=== PATIENT | male | born 1945 | race Caucasian/White ===

== ENCOUNTER 2018-03-11 10:38 | Inpatient (IN) ==
[2018-03-12 04:10] LABS: Basophils % 0.3 % (0.0-0.8); Eosinophils # 0.2 10*3/uL (0.0-0.87); Eosinophils % 5.2 % (0.00-10.9); Hematocrit 28.5 VOL% (42.0-52.0); Hemoglobin 9.9 GM/DL (14.0-18.0); Immature Granulocytes % 0.8 %; Immature Granulocytes Absolute 0.03 #; Lymphocytes # 0.2 10*3/uL (1.4-4.0); Lymphocytes % 4.9 % (21.2-54.2); Mean Corpuscular HGB Conc 34.7 GM/DL (32-36); Mean Corpuscular Hemoglobin 32 PG (27-34); Mean Corpuscular Volume 91.6 FL (87-102); Mean Platelet Volume 10.2 FL (9.6-12.0); Monocytes # 0.9 10*3/uL (0.11-0.8); Monocytes % 23.2 % (1.7-12.7); Neutrophils # 2.5 10*3/uL (1.4-7.4); Neutrophils % 65.6 % (38.7-73.9); Platelet Count 101 T/CUMM (130-400); Red Blood Count 3.11 MC/CUMM (3.8-5.5); Red Cell Distribution Width 14.3 % (9.3-17.3); White Blood Count 3.8 T/CUMM (4-12)
[2018-03-12 04:36] LABS: Band Neutrophils 3 % (0-10); Eosinophils 2 % (0-10); Hypochromasia Slight; Lymphocytes 11 % (20-55); Segmented Neutrophils 67 % (50-85); Total Cells Counted 100
[2018-03-12 04:37] LABS: Platelet Estimate Decreased
[2018-03-12 04:42] LABS: Albumin 2.7 G/DL (3.4-5.0); Bilirubin,Total 0.8 MG/DL (0.2-1.0); Potassium 4.2 MMOL/L (3.5-5.1)
[2018-03-14 04:03] LABS: Basophils % 0.4 % (0.0-0.8); Eosinophils # 0.1 10*3/uL (0.0-0.87); Eosinophils % 2.8 % (0.00-10.9); Hematocrit 27.3 VOL% (42.0-52.0); Hemoglobin 9.8 GM/DL (14.0-18.0); Immature Granulocytes % 1.4 %; Immature Granulocytes Absolute 0.07 #; Lymphocytes # 0.2 10*3/uL (1.4-4.0); Lymphocytes % 4.4 % (21.2-54.2); Mean Corpuscular HGB Conc 35.9 GM/DL (32-36); Mean Corpuscular Hemoglobin 33 PG (27-34); Mean Corpuscular Volume 90.4 FL (87-102); Mean Platelet Volume 10.8 FL (9.6-12.0); Monocytes # 0.9 10*3/uL (0.11-0.8); Monocytes % 17.5 % (1.7-12.7); NRBC # 0.04 10*3/uL; Neutrophils # 3.7 10*3/uL (1.4-7.4); Neutrophils % 73.5 % (38.7-73.9); Platelet Count 152 T/CUMM (130-400); Red Blood Count 3.02 MC/CUMM (3.8-5.5); Red Cell Distribution Width 14.8 % (9.3-17.3)
[2018-03-14 04:17] LABS: Bilirubin,Total 0.5 MG/DL (0.2-1.0); Calcium 7.3 MG/DL (8.5-10.1); Osmolality,Calculated 273.7 MOS/KG (273-304); Total Protein 4.4 G/DL (6.4-8.3)
[2018-03-14 06:51] LABS: Band Neutrophils 3 % (0-10); Eosinophils 1 % (0-10); Lymphocytes 5 % (20-55); Platelet Estimate Normal; Segmented Neutrophils 83 % (50-85); Total Cells Counted 100
[2018-03-16 05:31] LABS: Basophils % 0.5 % (0.0-0.8); Eosinophils # 0.4 10*3/uL (0.0-0.87); Hematocrit 23.8 VOL% (42.0-52.0); Hemoglobin 8.1 GM/DL (14.0-18.0); Immature Granulocytes % 2.1 %; Immature Granulocytes Absolute 0.08 #; Lymphocytes # 0.3 10*3/uL (1.4-4.0); Mean Corpuscular Hemoglobin 31 PG (27-34); Mean Corpuscular Volume 91.2 FL (87-102); Mean Platelet Volume 10.2 FL (9.6-12.0); Monocytes # 0.9 10*3/uL (0.11-0.8); Monocytes % 23.5 % (1.7-12.7); Neutrophils # 2.1 10*3/uL (1.4-7.4); Neutrophils % 55.9 % (38.7-73.9); Platelet Count 228 T/CUMM (130-400); Red Blood Count 2.61 MC/CUMM (3.8-5.5); Red Cell Distribution Width 14.6 % (9.3-17.3); White Blood Count 3.7 T/CUMM (4-12)
[2018-03-16 05:54] LABS: Calcium 7.4 MG/DL (8.5-10.1); Osmolality,Calculated 275.4 MOS/KG (273-304); Potassium 3.7 MMOL/L (3.5-5.1)
[2018-03-16 06:14] LABS: Band Neutrophils 1 % (0-10); Eosinophils 10 % (0-10); Giant Platelets Few; Hypochromasia 1+; Lymphocytes 3 % (20-55); Ovalocytes Slight; Platelet Estimate Adequate; Segmented Neutrophils 57 % (50-85); Total Cells Counted 100
[2018-03-17 05:12] LABS: Basophils % 0.7 % (0.0-0.8); Eosinophils # 0.4 10*3/uL (0.0-0.87); Eosinophils % 8.2 % (0.00-10.9); Hematocrit 23.7 VOL% (42.0-52.0); Hemoglobin 8.4 GM/DL (14.0-18.0); Immature Granulocytes Absolute 0.13 #; Lymphocytes # 0.5 10*3/uL (1.4-4.0); Lymphocytes % 11.2 % (21.2-54.2); Mean Corpuscular HGB Conc 35.4 GM/DL (32-36); Mean Corpuscular Hemoglobin 32 PG (27-34); Mean Corpuscular Volume 88.8 FL (87-102); Mean Platelet Volume 9.9 FL (9.6-12.0); Monocytes % 22.3 % (1.7-12.7); NRBC # 0.02 10*3/uL; Neutrophils # 2.4 10*3/uL (1.4-7.4); Neutrophils % 54.6 % (38.7-73.9); Platelet Count 265 T/CUMM (130-400); Red Blood Count 2.67 MC/CUMM (3.8-5.5); Red Cell Distribution Width 15.1 % (9.3-17.3); White Blood Count 4.4 T/CUMM (4-12)
[2018-03-17 05:37] LABS: Calcium 7.2 MG/DL (8.5-10.1); Osmolality,Calculated 273.4 MOS/KG (273-304); Potassium 3.2 MMOL/L (3.5-5.1)
[2018-03-17 05:52] LABS: Band Neutrophils 2 % (0-10); Eosinophils 8 % (0-10); Giant Platelets Few; Hypochromasia 1+; Lymphocytes 6 % (20-55); Nucleated Red Blood Cells 1 (0-5); Ovalocytes Slight; Platelet Estimate Adequate; Segmented Neutrophils 68 % (50-85); Total Cells Counted 100
[2018-03-18 05:38] LABS: Basophils % 0.7 % (0.0-0.8); Eosinophils # 0.6 10*3/uL (0.0-0.87); Eosinophils % 9.8 % (0.00-10.9); Hematocrit 24.5 VOL% (42.0-52.0); Hemoglobin 8.2 GM/DL (14.0-18.0); Immature Granulocytes % 2.7 %; Immature Granulocytes Absolute 0.16 #; Lymphocytes # 0.9 10*3/uL (1.4-4.0); Lymphocytes % 15.4 % (21.2-54.2); Mean Corpuscular HGB Conc 33.5 GM/DL (32-36); Mean Corpuscular Hemoglobin 31 PG (27-34); Mean Corpuscular Volume 91.1 FL (87-102); Monocytes # 1.3 10*3/uL (0.11-0.8); Monocytes % 21.8 % (1.7-12.7); Neutrophils % 49.6 % (38.7-73.9); Platelet Count 238 T/CUMM (130-400); Red Blood Count 2.69 MC/CUMM (3.8-5.5); Red Cell Distribution Width 15.2 % (9.3-17.3)
[2018-03-18 06:01] LABS: Band Neutrophils 3 % (0-10); Eosinophils 12 % (0-10); Giant Platelets Few; Hypochromasia 1+; Lymphocytes 16 % (20-55); Ovalocytes Slight; Platelet Estimate Adequate; Segmented Neutrophils 56 % (50-85); Total Cells Counted 100
[2018-03-18 06:04] LABS: Calcium 7.5 MG/DL (8.5-10.1); Osmolality,Calculated 277.3 MOS/KG (273-304); Potassium 3.6 MMOL/L (3.5-5.1)
[2018-03-18 07:37] VITALS: BP 141/67
== END 2018-03-18 10:59 | disposition home or self-care (01) | DRG 327 ==
LOC: N.4E
PROVIDERS: ADMIT Internal Medicine Hematology & Oncology; ATTEND Internal Medicine Hematology & Oncology

== ENCOUNTER 2019-02-01 12:48 | Inpatient (IN) ==
[2019-02-01 13:49] LABS: Basophils % 0.5 % (0.0-0.8); Eosinophils % 0.7 % (0.00-10.9); Hematocrit 24.3 VOL% (42.0-52.0); Hemoglobin 7.9 GM/DL (14.0-18.0); Immature Granulocytes % 0.5 %; Immature Granulocytes Absolute 0.02 #; Mean Corpuscular HGB Conc 32.5 GM/DL (32-36); Mean Corpuscular Hemoglobin 31 PG (27-34); Mean Corpuscular Volume 95.7 FL (87-102); Mean Platelet Volume 10.6 FL (9.6-12.0); Monocytes # 0.5 10*3/uL (0.11-0.8); Monocytes % 11.3 % (1.7-12.7); Neutrophils # 2.6 10*3/uL (1.4-7.4); Platelet Count 205 T/CUMM (130-400); Red Blood Count 2.54 MC/CUMM (3.8-5.5); Red Cell Distribution Width 15.1 % (9.3-17.3); White Blood Count 4.2 T/CUMM (4-12)
[2019-02-01 13:54] LABS: INR 1.3; PT Patient Result 13.6 SECS; Partial Thromboplastin Time 31.7 SECS (0-40)
[2019-02-01 14:04] LABS: Albumin 3.5 G/DL (3.4-5.0); Bilirubin,Total 0.4 MG/DL (0.2-1.0); Calcium 8.5 MG/DL (8.5-10.1); Osmolality,Calculated 277.1 MOS/KG (273-304); Potassium 4.2 MMOL/L (3.5-5.1); Total Protein 6.6 G/DL (6.4-8.3)
[2019-02-01 14:55] LABS: Apearance,Urine CLEAR (Clear); Bilirubin,Urine Negative (Negative); Blood, Urine Negative (Negative); Glucose,Urine (UA) Negative (Negative); Ketones,Urine Negative (Negative); Mucus,Urine Occasional /LPF (Occasional); Nitrite,Urine Negative (Negative); Protein,Urine Negative; RBC,Urine 2 /HPF (0-4); Squamous Epithelial Cell,Urine Occasional /HPF (0-10); Urine Color Yellow (Yellow); Urine Specific Gravity 1.041 (1.001-1.035); Urine Urobilinogen < 2.0 EU/DL (0.2-1.0); WBC,Urine <1 /HPF (0-6)
[2019-02-01] MEDS ORDERED: GLUCAGON 1 MG VIAL IM PRN (15:36)
[2019-02-01] MEDS ORDERED: DEXTROSE 50% 25 GM/50 ML VIAL IV PRN (15:36)
[2019-02-01] MEDS ORDERED: ACETAMINOPHEN 325 MG TABLET PO PRN (15:36)
[2019-02-01] MEDS ORDERED: DOCUSATE SODIUM 100 MG CAPSULE PO PRN (15:36)
[2019-02-01] MEDS ORDERED: SODIUM CHLORIDE 0.9% 1,000 ML IV PRN (16:04)
[2019-02-01 16:08] LABS: Thyroid Stimulating Hormone 3.13 uIU/ml (0.358-3.74)
[2019-02-01 16:49] LABS: % Iron Saturation 11.8 % (18-50)
[2019-02-01] MEDS: INSULIN LISPRO 100 UNIT/ML SUBCUT SCH ×2 (17:18→21:34)
[2019-02-01 17:21] LABS: Folate 21.5 NG/ML (5.4-24.0)
[2019-02-01] MEDS: RIVAROXABAN 20 MG TABLET PO SCH (18:30)
[2019-02-01] MEDS: INSULIN GLARGINE 100 UNIT/ML SUBCUT SCH (21:33)
[2019-02-01] MEDS: TEMAZEPAM 7.5 MG CAPSULE PO PRN (22:51)
[2019-02-02 02:52] LABS: Hematocrit 26.8 VOL% (42.0-52.0)
[2019-02-02 03:18] LABS: Albumin 2.9 G/DL (3.4-5.0); Bilirubin,Total 1.2 MG/DL (0.2-1.0); Calcium 8.2 MG/DL (8.5-10.1); Osmolality,Calculated 274.7 MOS/KG (273-304); Potassium 3.7 MMOL/L (3.5-5.1)
[2019-02-02 05:38] LABS: Basophils % 0.4 % (0.0-0.8); Eosinophils % 0.8 % (0.00-10.9); Hematocrit 27.7 VOL% (42.0-52.0); Hemoglobin 9.1 GM/DL (14.0-18.0); Immature Granulocytes % 0.4 %; Immature Granulocytes Absolute 0.02 #; Lymphocytes % 18.7 % (21.2-54.2); Mean Corpuscular HGB Conc 32.9 GM/DL (32-36); Mean Corpuscular Hemoglobin 31 PG (27-34); Mean Corpuscular Volume 93.6 FL (87-102); Mean Platelet Volume 10.4 FL (9.6-12.0); Monocytes # 0.8 10*3/uL (0.11-0.8); Monocytes % 14.9 % (1.7-12.7); Neutrophils # 3.4 10*3/uL (1.4-7.4); Neutrophils % 64.8 % (38.7-73.9); Platelet Count 153 T/CUMM (130-400); Red Blood Count 2.96 MC/CUMM (3.8-5.5); Red Cell Distribution Width 15.6 % (9.3-17.3); White Blood Count 5.3 T/CUMM (4-12)
[2019-02-02] MEDS: PANTOPRAZOLE 40 MG TABLET PO SCH (08:38)
[2019-02-02] MEDS: INSULIN LISPRO 100 UNIT/ML SUBCUT SCH ×4 (09:17→21:20)
[2019-02-02] MEDS: glipiZIDE 10 MG TABLET PO SCH (09:17)
[2019-02-02] MEDS: metFORMIN 500 MG TABLET PO SCH (09:17)
[2019-02-02] MEDS: INSULIN GLARGINE 100 UNIT/ML SUBCUT SCH ×2 (09:17→21:19)
[2019-02-02] MEDS: LISINOPRIL/HCTZ 20-12.5 MG TABLET PO SCH (09:30)
[2019-02-02] MEDS: RIVAROXABAN 20 MG TABLET PO SCH (16:20)
[2019-02-02] MEDS: TEMAZEPAM 7.5 MG CAPSULE PO PRN (21:22)
[2019-02-03 04:28] LABS: Basophils % 0.2 % (0.0-0.8); Eosinophils # 0.1 10*3/uL (0.0-0.87); Eosinophils % 3.2 % (0.00-10.9); Hematocrit 28.6 VOL% (42.0-52.0); Hemoglobin 9.3 GM/DL (14.0-18.0); Immature Granulocytes % 0.2 %; Immature Granulocytes Absolute 0.01 #; Lymphocytes # 0.7 10*3/uL (1.4-4.0); Lymphocytes % 16.8 % (21.2-54.2); Mean Corpuscular HGB Conc 32.5 GM/DL (32-36); Mean Corpuscular Hemoglobin 30 PG (27-34); Mean Corpuscular Volume 93.5 FL (87-102); Mean Platelet Volume 10.6 FL (9.6-12.0); Monocytes # 0.7 10*3/uL (0.11-0.8); Monocytes % 17.3 % (1.7-12.7); Neutrophils # 2.5 10*3/uL (1.4-7.4); Neutrophils % 62.3 % (38.7-73.9); Platelet Count 157 T/CUMM (130-400); Red Blood Count 3.06 MC/CUMM (3.8-5.5); Red Cell Distribution Width 15.9 % (9.3-17.3); White Blood Count 4.1 T/CUMM (4-12)
[2019-02-03 05:03] LABS: Albumin 3.2 G/DL (3.4-5.0); Bilirubin,Total 0.9 MG/DL (0.2-1.0); Calcium 8.2 MG/DL (8.5-10.1); Osmolality,Calculated 274.7 MOS/KG (273-304); Potassium 3.9 MMOL/L (3.5-5.1); Total Protein 6.1 G/DL (6.4-8.3)
[2019-02-03 05:07] LABS: Eosinophils 4 % (0-10); Hypochromasia 1+; Lymphocytes 19 % (20-55); Platelet Estimate Adequate; Segmented Neutrophils 57 % (50-85); Total Cells Counted 100
[2019-02-03] MEDS: INSULIN LISPRO 100 UNIT/ML SUBCUT SCH ×4 (07:34→20:38)
[2019-02-03] MEDS: glipiZIDE 10 MG TABLET PO SCH (09:36)
[2019-02-03] MEDS: metFORMIN 500 MG TABLET PO SCH (09:36)
[2019-02-03] MEDS: PANTOPRAZOLE 40 MG TABLET PO SCH (09:37)
[2019-02-03] MEDS: LISINOPRIL/HCTZ 20-12.5 MG TABLET PO SCH (09:37)
[2019-02-03] MEDS: INSULIN GLARGINE 100 UNIT/ML SUBCUT SCH ×2 (09:38→20:38)
[2019-02-03] MEDS ORDERED: SODIUM CHLORIDE 0.9% 1,000 ML IV ONE (11:40)
[2019-02-03] MEDS: RIVAROXABAN 20 MG TABLET PO SCH (17:14)
[2019-02-03] MEDS: ONDANSETRON 4 MG/2 ML VIAL IV PRN (19:11)
[2019-02-03] MEDS: TEMAZEPAM 7.5 MG CAPSULE PO PRN (20:38)
[2019-02-04 05:08] LABS: Basophils % 0.4 % (0.0-0.8); Eosinophils # 0.2 10*3/uL (0.0-0.87); Eosinophils % 3.4 % (0.00-10.9); Hematocrit 30.6 VOL% (42.0-52.0); Hemoglobin 10.1 GM/DL (14.0-18.0); Immature Granulocytes % 0.4 %; Immature Granulocytes Absolute 0.02 #; Lymphocytes % 22.5 % (21.2-54.2); Mean Corpuscular Hemoglobin 31 PG (27-34); Mean Corpuscular Volume 93.6 FL (87-102); Mean Platelet Volume 10.5 FL (9.6-12.0); Monocytes # 0.7 10*3/uL (0.11-0.8); Monocytes % 14.6 % (1.7-12.7); Neutrophils # 2.6 10*3/uL (1.4-7.4); Neutrophils % 58.7 % (38.7-73.9); Platelet Count 135 T/CUMM (130-400); Red Blood Count 3.27 MC/CUMM (3.8-5.5); Red Cell Distribution Width 15.5 % (9.3-17.3); White Blood Count 4.5 T/CUMM (4-12)
[2019-02-04 05:32] LABS: Albumin 3.2 G/DL (3.4-5.0); Bilirubin,Total 0.8 MG/DL (0.2-1.0); Calcium 8.3 MG/DL (8.5-10.1); Osmolality,Calculated 278.7 MOS/KG (273-304); Potassium 4.1 MMOL/L (3.5-5.1); Total Protein 6.3 G/DL (6.4-8.3)
[2019-02-04] MEDS: INSULIN LISPRO 100 UNIT/ML SUBCUT SCH ×4 (07:16→20:41)
[2019-02-04] MEDS: INSULIN GLARGINE 100 UNIT/ML SUBCUT SCH ×2 (08:51→20:40)
[2019-02-04] MEDS: glipiZIDE 10 MG TABLET PO SCH (08:52)
[2019-02-04] MEDS: PANTOPRAZOLE 40 MG TABLET PO SCH (08:52)
[2019-02-04] MEDS: metFORMIN 500 MG TABLET PO SCH (08:52)
[2019-02-04] MEDS: RIVAROXABAN 20 MG TABLET PO SCH (17:55)
[2019-02-04] MEDS: TEMAZEPAM 7.5 MG CAPSULE PO PRN (20:40)
[2019-02-05] MEDS: INSULIN LISPRO 100 UNIT/ML SUBCUT SCH ×2 (07:48→12:31)
[2019-02-05] MEDS: PANTOPRAZOLE 40 MG TABLET PO SCH (08:37)
[2019-02-05] MEDS: INSULIN GLARGINE 100 UNIT/ML SUBCUT SCH (08:38)
[2019-02-05] MEDS: ONDANSETRON 4 MG/2 ML VIAL IV PRN (08:38)
[2019-02-05] MEDS: glipiZIDE 10 MG TABLET PO SCH (08:38)
[2019-02-05 11:42] VITALS: BP 142/68
== END 2019-02-05 12:34 | disposition home or self-care (01) | DRG 204 ==
LOC: N.ED 12:48 → SUATTDRO 15:36 → N.EDINP 16:43 → N.2E 16:58
PROVIDERS: ADMIT Internal Medicine; ATTEND Internal Medicine

== ENCOUNTER 2019-09-13 17:39 | Inpatient (IN) ==
[2019-09-13 22:24] LABS: Basophils % 0.7 % (0.0-0.8); Eosinophils # 0.1 10*3/uL (0.0-0.87); Eosinophils % 2.4 % (0.00-10.9); Hemoglobin 11.1 GM/DL (14.0-18.0); Immature Granulocytes % 0.2 %; Immature Granulocytes Absolute 0.01 #; Lymphocytes # 1.7 10*3/uL (1.4-4.0); Lymphocytes % 41.1 % (21.2-54.2); Mean Corpuscular HGB Conc 34.7 GM/DL (32-36); Mean Corpuscular Volume 94.7 FL (87-102); Mean Platelet Volume 12.1 FL (9.6-12.0); Monocytes % 12.6 % (1.7-12.7); Platelet Count 115 T/CUMM (130-400); Red Blood Count 3.38 MC/CUMM (3.8-5.5); Red Cell Distribution Width 15.4 % (9.3-17.3); White Blood Count 4.2 T/CUMM (4-12)
[2019-09-13] MEDS ORDERED: oxyCODONE/ACETAMINOPHEN 5-325 MG TABLET PO STA (22:27)
[2019-09-13 22:56] LABS: Albumin 3.3 G/DL (3.4-5.0); Bilirubin,Total 0.7 MG/DL (0.2-1.0); Calcium 9.5 MG/DL (8.5-10.1); Osmolality,Calculated 276.8 MOS/KG (273-304); Total Protein 6.5 G/DL (6.4-8.3)
[2019-09-14] MEDS ORDERED: SODIUM CHLORIDE 0.9% 1,000 ML IV STA (00:15)
[2019-09-14] MEDS ORDERED: NICOTINE 21 MG/24 HR PATCH TRANSDERM PRN (00:31)
[2019-09-14] MEDS ORDERED: MORPHINE 4 MG/1 ML VIAL IV PRN (00:31)
[2019-09-14] MEDS ORDERED: ONDANSETRON 4 MG/2 ML VIAL IV PRN (00:31)
[2019-09-14] MEDS: PANTOPRAZOLE 40 MG VIAL IV SCH ×3 (01:32→20:36)
[2019-09-14] MEDS: SODIUM CHLORIDE 0.9% 1,000 ML IV SCH ×3 (02:13→18:32)
[2019-09-14 02:51] LABS: Basophils % 0.8 % (0.0-0.8); Eosinophils # 0.1 10*3/uL (0.0-0.87); Eosinophils % 1.6 % (0.00-10.9); Hematocrit 31.6 VOL% (42.0-52.0); Hemoglobin 10.3 GM/DL (14.0-18.0); Lymphocytes # 0.9 10*3/uL (1.4-4.0); Mean Corpuscular HGB Conc 32.6 GM/DL (32-36); Mean Corpuscular Volume 99.4 FL (87-102); Mean Platelet Volume 10.7 FL (9.6-12.0); Monocytes % 15.3 % (1.7-12.7); Neutrophils % 58.3 % (38.7-73.9); Platelet Count 102 T/CUMM (130-400); Red Blood Count 3.18 MC/CUMM (3.8-5.5); Red Cell Distribution Width 15.6 % (9.3-17.3); White Blood Count 3.7 T/CUMM (4-12)
[2019-09-14 03:05] LABS: Apearance,Urine CLEAR (Clear); Bacteria,Urine Occasional /HPF (Few); Bilirubin,Urine Negative (Negative); Blood, Urine Negative (Negative); Glucose,Urine (UA) Negative (Negative); Ketones,Urine 20 mg/dL (Negative); Nitrite,Urine Negative (Negative); Protein,Urine Negative; RBC,Urine 1 /HPF (0-4); Squamous Epithelial Cell,Urine Occasional /HPF (0-10); Urine Color Yellow (Yellow); Urine Specific Gravity > 1.060 (1.001-1.035); Urine Urobilinogen < 2.0 EU/DL (0.2-1.0); WBC,Urine 1 /HPF (0-6)
[2019-09-14 03:28] LABS: Albumin 3.1 G/DL (3.4-5.0); Bilirubin,Total 0.7 MG/DL (0.2-1.0); Calcium 8.7 MG/DL (8.5-10.1); Osmolality,Calculated 281.5 MOS/KG (273-304); Total Protein 6.1 G/DL (6.4-8.3)
[2019-09-14] MEDS ORDERED: GLUCAGON 1 MG VIAL IM PRN (05:54)
[2019-09-14] MEDS ORDERED: DEXTROSE 50% 25 GM/50 ML VIAL IV PRN (05:54)
[2019-09-14] MEDS: INSULIN LISPRO 100 UNIT/ML SUBCUT SCH ×3 (06:15→18:32)
[2019-09-14] MEDS ORDERED: DEXAMETHASONE 10 MG/1 ML VIAL IV ONE (08:56)
[2019-09-14] MEDS ORDERED: DRONABINOL 2.5 MG CAPSULE PO SCH (09:00)
[2019-09-14] MEDS ORDERED: INSULIN GLARGINE 100 UNIT/ML SUBCUT SCH (09:00)
[2019-09-14] MEDS: oxyCODONE/ACETAMINOPHEN 5-325 MG TABLET PO SCH ×2 (09:55→20:36)
[2019-09-14] MEDS: MORPHINE ER 30 MG TABLET PO SCH ×2 (09:56→20:36)
[2019-09-14] MEDS ORDERED: DIPHENOXYLATE/ATROPINE 2.5-0.025 MG TABLET PO PRN (10:00)
[2019-09-14] MEDS ORDERED: ENOXAPARIN 100 MG/ML SYRINGE SUBCUT SCH (11:30)
[2019-09-14] MEDS ORDERED: ENOXAPARIN 40 MG/0.4 ML SYRINGE SUBCUT SCH ×2 (12:00→21:00)
[2019-09-14] MEDS: DEXAMETHASONE 4 MG/1 ML VIAL IV SCH ×2 (16:00→20:36)
[2019-09-14] MEDS: DIPHENOXYLATE/ATROPINE 2.5-0.025 MG TABLET PO SCH ×2 (16:00→22:36)
[2019-09-15] MEDS: INSULIN LISPRO 100 UNIT/ML SUBCUT SCH ×4 (01:54→17:57)
[2019-09-15] MEDS: SODIUM CHLORIDE 0.9% 1,000 ML IV SCH ×3 (02:46→16:08)
[2019-09-15] MEDS: DEXAMETHASONE 4 MG/1 ML VIAL IV SCH ×4 (03:49→21:40)
[2019-09-15] MEDS: DIPHENOXYLATE/ATROPINE 2.5-0.025 MG TABLET PO SCH ×4 (03:49→22:02)
[2019-09-15 05:49] LABS: Hematocrit 27.9 VOL% (42.0-52.0); Hemoglobin 9.2 GM/DL (14.0-18.0); Lymphocytes # 0.6 10*3/uL (1.4-4.0); Lymphocytes % 23.9 % (21.2-54.2); Mean Corpuscular Volume 99.6 FL (87-102); Monocytes % 8.7 % (1.7-12.7); Neutrophils % 67.4 % (38.7-73.9); Platelet Count 120 T/CUMM (130-400); Red Cell Distribution Width 15.7 % (9.3-17.3); White Blood Count 2.3 T/CUMM (4-12)
[2019-09-15 06:27] LABS: Albumin 2.5 G/DL (3.4-5.0); Bilirubin,Total 0.4 MG/DL (0.2-1.0); Calcium 8.1 MG/DL (8.5-10.1); Osmolality,Calculated 278.7 MOS/KG (273-304); Total Protein 5.7 G/DL (6.4-8.3)
[2019-09-15] MEDS: oxyCODONE/ACETAMINOPHEN 5-325 MG TABLET PO SCH ×2 (09:01→21:40)
[2019-09-15] MEDS: MORPHINE ER 30 MG TABLET PO SCH ×2 (09:01→21:40)
[2019-09-15] MEDS: PANTOPRAZOLE 40 MG VIAL IV SCH ×2 (09:02→21:40)
[2019-09-15] MEDS: ENOXAPARIN 60 MG/0.6 ML SYRINGE SUBCUT SCH (16:04)
[2019-09-16] MEDS: INSULIN LISPRO 100 UNIT/ML SUBCUT SCH ×2 (01:18→06:28)
[2019-09-16] MEDS: DIPHENOXYLATE/ATROPINE 2.5-0.025 MG TABLET PO SCH ×2 (04:00→09:12)
[2019-09-16] MEDS: DEXAMETHASONE 4 MG/1 ML VIAL IV SCH ×2 (04:00→09:12)
[2019-09-16 05:37] LABS: Hemoglobin 9.6 GM/DL (14.0-18.0); Immature Granulocytes % 0.5 %; Immature Granulocytes Absolute 0.06 #; Lymphocytes # 0.5 10*3/uL (1.4-4.0); Lymphocytes % 3.9 % (21.2-54.2); Mean Corpuscular HGB Conc 33.1 GM/DL (32-36); Mean Corpuscular Volume 97.6 FL (87-102); Mean Platelet Volume 13.3 FL (9.6-12.0); Neutrophils % 90.6 % (38.7-73.9); Platelet Count 107 T/CUMM (130-400); Red Blood Count 2.97 MC/CUMM (3.8-5.5); Red Cell Distribution Width 15.9 % (9.3-17.3); White Blood Count 11.6 T/CUMM (4-12)
[2019-09-16 06:08] LABS: Hypochromasia 1+; Lymphocytes 6 % (20-55); Platelet Estimate Decreased; Segmented Neutrophils 91 % (50-85); Total Cells Counted 100
[2019-09-16 06:09] LABS: Ovalocytes Slight
[2019-09-16] MEDS: ENOXAPARIN 60 MG/0.6 ML SYRINGE SUBCUT SCH (06:29)
[2019-09-16] MEDS: SODIUM CHLORIDE 0.9% 1,000 ML IV SCH ×2 (06:40→10:50)
[2019-09-16 07:23] LABS: Calcium 8.2 MG/DL (8.5-10.1); Osmolality,Calculated 284.4 MOS/KG (273-304)
[2019-09-16] MEDS ORDERED: MAGNESIUM SULF RIDER 2 GM in PREMIX 1 EACH IV ONE (07:55)
[2019-09-16] MEDS: oxyCODONE/ACETAMINOPHEN 5-325 MG TABLET PO SCH (09:12)
[2019-09-16] MEDS: MORPHINE ER 30 MG TABLET PO SCH (09:12)
[2019-09-16] MEDS: PANTOPRAZOLE 40 MG VIAL IV SCH (10:50)
[2019-09-16 11:48] VITALS: BP 120/56
== END 2019-09-16 12:33 | disposition home health service (06) | DRG 391 ==
LOC: N.ED 17:39 → N.EDINP 17:39 → N.4E 09-14 01:04
PROVIDERS: ADMIT Internal Medicine; ATTEND Internal Medicine